=== PATIENT | female | born 1935 | race Caucasian/White ===

== ENCOUNTER 2017-08-28 08:50 | Emergency (ER) | payer MEDICARE, BC ==
--- NOTE | 2017-08-28 09:03 | Emergency Department Record ---
History of Present Illness - General Chief Complaint: Fall Injury Stated Complaint: FALL Time Seen by Provider: 08/28/17 08:53 Source: EMS Mode of Arrival: EMS - History of Present Illness Initial Comments: Patient at [facility] and found with a bruise on her forehead and no staff members saw her injury herself and she has dementia and in the memory side of [facility]. Patient ambulatory at the scene and denies headache and her personality the same as usual per staff at [facility]. EMS brought her in for evaluation and hard collar applied upon arrival and trauma alert called because patient on xarelto. Complaint: Fall -: Unknown When Fall Occurred: Unsure Fall Witnessed: No Place Fall Occurred: Home - [place] Coma Scale Eye Response: (4) Open spontaneously Motor Response: (6) Obeys commands Verbal Response: (5) Oriented [place] Total: 15 - Related Data Previous Rx's Medication Instructions Recorded Acetaminophen [Tylenol 325Mg] 325 mg PO Q6HR PRN #30 tablet 02/29/16 Aspirin Chewable 81 mg PO DAILY #30 tab.chew 02/29/16 Olanzapine [Zyprexa] 2.5 mg PO QHS #30 tablet 02/29/16 Diltiazem HCl [Cardizem] 30 mg PO TID #90 tablet 11/19/16 Levofloxacin [Levaquin] 500 mg PO DAILYFLUOR #10 tablet 11/19/16 Allergies Allergy/AdvReac Type Severity Reaction Status Date / Time Penicillins Allergy PT UNSURE Verified 07/18/16 19:23 OF REACTION Travel Screening - Travel/Exposure Within Last 30 Days Have you traveled within the last 30 days?: No - Travel/Exposure Within Last Year Have you traveled outside the [place] in the last year?: No - Additonal Travel Details Have you been exposed to anyone with a communicable illness?: No - Travel Symptoms Symptom Screening: None Review of Systems Reviewed: No additional complaints except as noted below Constitutional: Reports: As per HPI. Denies: Chills, Fever, Malaise, Night sweats, Weakness, Weight change Eyes: Reports: As per HPI. Denies: Eye discharge, Eye pain, Photophobia, Vision change ENT: Reports: As per HPI. Denies: Congestion, Dental pain, Ear pain, Epistaxis , Hearing loss, Throat pain Respiratory: Reports: As per HPI. Denies: Cough, Dyspnea, Hemoptysis, Stridor, Wheezes Cardiovascular: Reports: As per HPI. Denies: Arrhythmia, Chest pain, Dyspnea on exertion, Edema, Murmurs, Orthopnea, Palpitations, Paroxysmal nocturnal dyspnea, Rheumatic Fever, Syncope Endocrine: Reports: As per HPI. Denies: Fatigue, Heat or cold intolerance, Polydipsia, Polyuria Gastrointestinal: Reports: As per HPI. Denies: Abdominal pain, Constipation, Diarrhea, Hematemesis, Hematochezia, Melena, Nausea, Vomiting Genitourinary: Reports: As per HPI. Denies: Abnormal menses, Discharge, Dyspareunia, Dysuria, Frequency, Hematuria, Incontinence, Retention, Urgency Musculoskeletal: Reports: As per HPI, Other (bruise on the left forehead). Denies: Arthralgia, Back pain, Gout, Joint swelling, Myalgia, Neck pain Skin: Reports: As per HPI. Denies: Bruising, Change in color, Change in hair/ nails, Lesions, Pruritus, Rash Neurological: Reports: As per HPI. Denies: Abnormal gait, Confusion, Headache, Numbness, Paresthesias, Seizure, Tingling, Tremors, Vertigo, Weakness Psychiatric: Reports: As per HPI. Denies: Anxiety, Auditory hallucinations, Depression, Homicidal thoughts, Suicidal thoughts, Visual hallucinations Hematological/Lymphatic: Reports: As per HPI. Denies: Anemia, Blood Clots, Easy bleeding, Easy bruising, Swollen glands Past Medical History - SOCIAL HISTORY Smoking Status: Never smoker Alcohol Use: None Drug Use: None - RESPIRATORY Hx Respiratory Disorders: No - CARDIOVASCULAR Hx Cardio Disorders: Yes Hx Hypertension: Yes Hx Irregular Heartbeat: Yes (A-fib) - NEURO Hx Neuro Disorders: Yes Hx Dementia: Yes - GI Hx GI Disorders: No - Hx Genitourinary Disorders: No - ENDOCRINE Hx Endocrine Disorders: No - MUSCULOSKELETAL Hx Musculoskeletal Disorders: No - PSYCH Hx Psych Problems: No - HEMATOLOGY/ONCOLOGY Hx Hematology/Oncology Disorders: No Family Medical History Any Significant Family History?: No Family Hx Comment (NOT TO BE USED IN PLACE OF ITEMS BELOW): unknown-pt unable to answer d/t dementia Hx Cancer: Father Hx Dementia: Mother Hx Diabetes: Mother Physical Exam - General General Appearance: Alert, Cooperative, No acute distress, Other (patient oriented to name only) - Head Head exam: Normal inspection Head exam detail: Contusion (forehead) - Eye Eye exam: Normal appearance, PERRL Pupils: Normal accommodation - ENT ENT exam: Normal exam, Mucous membranes moist, Normal external ear exam, Normal orophraynx, TM's normal bilaterally Ear exam: Normal external inspection. negative: External canal tenderness Nasal Exam: Normal inspection. negative: Discharge, Sinus tenderness Mouth exam: Normal external inspection, Tongue normal Teeth exam: Normal inspection. negative: Dental caries Throat exam: Normal inspection. negative: Tonsillar erythema, Tonsillar exudate - Neck Neck exam: Normal inspection, Full ROM. negative: Tenderness - Respiratory Respiratory exam: Normal lung sounds bilaterally. negative: Respiratory distress - Cardiovascular Cardiovascular Exam: Regular rate, Normal rhythm, Normal heart sounds - GI/Abdominal GI/Abdominal exam: Soft, Normal bowel sounds. negative: Tenderness - Rectal Rectal exam: Deferred - exam: Deferred - Extremities Extremities exam: Normal inspection, Full ROM, Normal capillary refill. negative: Tenderness - Back Back exam: Reports: Normal inspection, Full ROM, Other (no pain on palpation of the thoracic or lumbar spine and she sat up without pain ). Denies: Muscle spasm, Rash noted, Tenderness - Neurological Neurological exam: Alert, Normal gait, Oriented X3, Reflexes normal - Psychiatric Psychiatric exam: Normal affect, Normal mood - Skin Skin exam: Dry, Intact, Normal color, Warm Course Vital Signs 08/28/17 08:54 Temperature 97.5 F L Pulse Rate 70 Respiratory 16 Rate Blood Pressure 133/65 Pulse Ox 98 - Reevaluation(s) Reevaluation #1: xray called back and she complained of thoracic and lumbar pain when placed on the CT table so made the chest xray 2 views and added two view LS spine 08/28/17 09:24 Reevaluation #2: neuro recheck negative 08/28/17 11:03 Reevaluation #3: daughter is at the bedside and willing to take her home 08/28/17 11:03 Medical Decision Making - Data Complexity MDM Data: Labs Ordered and/or Reviewed, X-Ray Ordered and/or Reviewed (CT head and csine negative, lumbar spine negative and chest xray neg), EKG Ordered and/ or Reviewed (LBBB , nsr, similiar to previous) - Lab Data Result diagrams: 08/28/17 08:55 08/28/17 08:55 Disposition Clinical Impression: Anticoagulated Fall Qualifiers: Encounter type: initial encounter Qualified Code(s): W19.XXXA - Unspecified fall, initial encounter Contusion of head Qualifiers: Encounter type: initial encounter Contusion of head detail: other part of head Qualified Code(s): S00.83XA - Contusion of other part of head, initial encounter Disposition: Home, Self-Care Condition: (1) Good Instructions: Fall Prevention for Older Adults (ED), Head Injury (ED) Additional Instructions: stop xarelto for 7 days and than restart xarelto Forms: Patient Portal Access Time of Disposition: 11:01 Quality - Quality Measures Quality Measures: N/A - Blood Pressure Screening Does Patient Have Any of the Following: No Blood Pressure Classification: Pre-Hypertensive BP Reading Systolic Measurement: 133 Diastolic Measurement: 65 Screening for High Blood Pressure: < Pre-Hypertensive BP, F/U Documented > [ G8950] Pre-Hypertensive Follow-up Interventions: Referral to alternative/primary care provider.
[2017-08-28 09:09] LABS: BASO % 1.5 % (0-6); GRAN % 56.4 % (47-80); HEMATOCRIT 39.2 % (35.0-47.0); HEMOGLOBIN 12.8 gm/dl (11.6-16.0); LYMPH % 32.3 % (16-45); MEAN CELL VOLUME 96.6 fl (81-97); MEAN CORPUSCULAR HEMOGLOBIN 31.5 pg (27-33); MEAN CORPUSCULAR HGB CONC 32.7 g/dl (32-36); MEAN PLATELET VOLUME 10.4 fl (7.4-10.4); MONO % 3.8 % (0-9); PLATELET COUNT 267 K/uL (130-400); RED BLOOD COUNT 4.06 M/uL (3.80-5.40); RED CELL DISTRIBUTION WIDTH 12.8 % (11.5-14.5); WHITE BLOOD COUNT W/O DIFF 6.9 K/uL (4.2-12.2)
[2017-08-28 09:22] LABS: INR 1.05; PARTIAL THROMBOPLASTIN TIME 24.6 SECONDS (24.5-39.1); PROTHROMBIN TIME (PATIENT) 11.4 SECONDS (9.5-12.1)
[2017-08-28 09:38] LABS: BLOOD UREA NITROGEN 12 mg/dL (8-23); CKMB 1.6 ng/mL (<3.77); CREATININE 0.9 mg/dL (0.5-0.9); EST GLOMERULAR FILTRATION RATE > 60 mL/min; GLUCOSE,RANDOM 134 mg/dL (74-109); TROPONIN I < 0.30 ng/mL (0.00-0.300)
--- NOTE | 2017-08-29 14:14 | CT SCAN REPORT ---
DATE: 08/28/2017. EXAM: CT OF THE BRAIN WITHOUT CONTRAST. HISTORY: Laceration. TECHNIQUE: CT of the brain without contrast. COMPARISON: 11/17/2015 CT of the brain. FINDINGS: The globes are intact. Mucosal thickening of the maxillary sinuses bilaterally. Air fluid level of the right sphenoid sinus. Mucosal thickening of the ethmoid air cells. No displaced or depressed skull fracture. No intra- or extra-axial hemorrhage. Small left frontal scalp hematoma. Age-appropriate atrophy. Small-vessel ischemic change. CT limited for the evaluation of acute infarct. No CT evidence for large or territorial acute infarct. No mass or midline shift. IMPRESSION: 1. SMALL LEFT FRONTAL SCALP HEMATOMA. 2. ATROPHY. SMALL-VESSEL ISCHEMIC CHANGE. 3. SINUSITIS, ABOVE. JOB NUMBER: [id number] MTDD
--- NOTE | 2017-08-29 14:28 | CT SCAN REPORT ---
DATE: 08/28/2017. EXAM: CT OF THE CERVICAL SPINE. HISTORY: Fall. TECHNIQUE: Axial CT images of the cervical spine with coronal and sagittal reconstructions. COMPARISON: Prior CT dated 11/17/2016. FINDINGS: Evaluation of spinal canal content is limited due to CT technique. However, vertebral body height is preserved. Minor anterolisthesis of C3 on C4 and C7 on T1, unchanged and felt to be degenerative or developmental in nature. Diffuse/multilevel degenerative change throughout the cervical spine, greatest at the C5-6 and C6-7 levels. Fibrotic changes in the lung apices. IMPRESSION: NEGATIVE FOR ACUTE CERVICAL SPINE ABNORMALITY. DIFFUSE DEGENERATIVE CHANGE ABOVE. JOB NUMBER: [id number] [facility]
--- NOTE | 2017-08-29 14:38 | RADIOLOGY REPORT ---
DATE: 08/28/2017. EXAM: TWO-VIEW, CHEST. HISTORY: Chest pain. TECHNIQUE: Frontal and lateral views of the chest. COMPARISON: None. FINDINGS: The heart size is normal. Atheromatous change of the thoracic aorta. Osteopenia. The lungs are clear. No pneumothorax. IMPRESSION: NEGATIVE CHEST. JOB NUMBER: [id number] MTDD
--- NOTE | 2017-08-29 14:42 | RADIOLOGY REPORT ---
DATE: 08/28/2017. EXAM: LUMBAR SPINE. HISTORY: Back pain. TECHNIQUE: Frontal and lateral views of the lumbar spine. COMPARISON: None. ENCOUNTER: Initial. FINDINGS: Osteopenia. Five [id number] lumbar type vertebral bodies. Diminutive 12 ribs. Vertebral body height and alignment are preserved. Endplate degenerative changes with facet arthropathy throughout the lumbar spine. Vascular calcifications are noted. IMPRESSION: OSTEOPENIA. MULTILEVEL DEGENERATIVE CHANGE. JOB NUMBER: [id number] MTDD
== END 2017-08-28 11:24 | disposition home or self-care (01) ==
LOC: ER 08:50
DX: S00.83XA Contusion of other part of head, initial encounter (principal); S00.03XA Contusion of scalp, initial encounter; M54.6 Pain in thoracic spine; R07.89 Other chest pain; I10 Essential (primary) hypertension; I48.91 Unspecified atrial fibrillation; F03.90 Unspecified dementia, unspecified severity, without behavioral disturbance, psychotic disturbance, mood disturbance, and anxiety; W19.XXXA Unspecified fall, initial encounter; Z79.01 Long term (current) use of anticoagulants; Y92.129 Unspecified place in nursing home as the place of occurrence of the external cause
CPT/HCPCS: 99284 ×2; 85025; 85730; 85610; 82553; 84484; 80048; 71020; 72100; 72125; 70450; 93005; 93010; G0480; 80320

== ENCOUNTER 2017-11-11 23:41 | Emergency (ER) | payer MEDICARE, BC ==
--- NOTE | 2017-11-12 00:07 | Emergency Department Record ---
History of Present Illness - General Chief Complaint: Fall Injury Stated Complaint: FALL Time Seen by Provider: 11/12/17 00:00 Source: EMS Mode of Arrival: EMS - History of Present Illness Initial Comments: Patient arrived by EMS because she fell at her care facility. She arrived with a cervical collar, alert, but not knowing what happened or where she lives. Uncertain of medications. Facility paged to find these answers. Patient denies headache, neck pain, "but this collar hurts," chest, abdomen, hips, back legs all non painful. Onset/Timin -: Minutes(s) Fall From: Standing When Fall Occurred: Just prior to arrival Place [facility] Loss of Consciousness: None Prolonged Down Time?: No Associated Symptoms: Denies - Related Data Home Medications Medication Instructions Recorded Confirmed Last Taken Mineral Oil/Petrolatum,White 3.5 gm OP QHS 11/12/17 11/12/17 Unknown [Lubrifresh Pm Eye Ointment] Previous Rx's Medication Instructions Recorded Acetaminophen [Tylenol 325Mg] 325 mg PO Q6HR PRN #30 tablet 02/29/16 Olanzapine [Zyprexa] 2.5 mg PO QHS #30 tablet 02/29/16 Diltiazem HCl [Cardizem] 30 mg PO TID #90 tablet 11/19/16 Sulfamethoxazole/Trimethoprim 1 each PO BID #19 tablet 11/12/17 [Bactrim Ds Tablet] Allergies Allergy/AdvReac Type Severity Reaction Status Date / Time Penicillins Allergy PT UNSURE Verified 07/18/16 19:23 OF REACTION Travel Screening - Travel/Exposure Within Last 30 Days Have you traveled within the last 30 days?: No - Travel Symptoms Symptom Screening: None Review of Systems Reviewed: No additional complaints except as noted below Constitutional: Reports: As per HPI. Denies: Chills, Fever, Malaise, Night sweats, Weakness, Weight change Eyes: Reports: As per HPI. Denies: Eye discharge, Eye pain, Photophobia, Vision change ENT: Reports: As per HPI. Denies: Congestion, Dental pain, Ear pain, Epistaxis , Hearing loss, Throat pain Respiratory: Reports: As per HPI. Denies: Cough, Dyspnea, Hemoptysis, Stridor, Wheezes Cardiovascular: Reports: As per HPI. Denies: Arrhythmia, Chest pain, Dyspnea on exertion, Edema, Murmurs, Orthopnea, Palpitations, Paroxysmal nocturnal dyspnea, Rheumatic Fever, Syncope Endocrine: Reports: As per HPI. Denies: Fatigue, Heat or cold intolerance, Polydipsia, Polyuria Gastrointestinal: Reports: As per HPI. Denies: Abdominal pain, Constipation, Diarrhea, Hematemesis, Hematochezia, Melena, Nausea, Vomiting Genitourinary: Reports: As per HPI. Denies: Abnormal menses, Discharge, Dyspareunia, Dysuria, Frequency, Hematuria, Incontinence, Retention, Urgency Musculoskeletal: Reports: As per HPI. Denies: Arthralgia, Back pain, Gout, Joint swelling, Myalgia, Neck pain Skin: Reports: As per HPI. Denies: Bruising, Change in color, Change in hair/ nails, Lesions, Pruritus, Rash Neurological: Reports: As per HPI. Denies: Abnormal gait, Confusion, Headache, Numbness, Paresthesias, Seizure, Tingling, Tremors, Vertigo, Weakness Psychiatric: Reports: As per HPI. Denies: Anxiety, Auditory hallucinations, Depression, Homicidal thoughts, Suicidal thoughts, Visual hallucinations Hematological/Lymphatic: Reports: As per HPI. Denies: Anemia, Blood Clots, Easy bleeding, Easy bruising, Swollen glands Past Medical History - SOCIAL HISTORY Smoking Status: Never smoker - RESPIRATORY Hx Respiratory Disorders: No - CARDIOVASCULAR Hx Cardio Disorders: Yes Hx Hypertension: Yes Hx Irregular Heartbeat: Yes (A-fib) - NEURO Hx Neuro Disorders: Yes Hx Dementia: Yes - GI Hx GI Disorders: No - Hx Genitourinary Disorders: No - ENDOCRINE Hx Endocrine Disorders: No - MUSCULOSKELETAL Hx Musculoskeletal Disorders: No - PSYCH Hx Psych Problems: No - HEMATOLOGY/ONCOLOGY Hx Hematology/Oncology Disorders: No Family Medical History Any Significant Family History?: Yes Family Hx Comment (NOT TO BE USED IN PLACE OF ITEMS BELOW): unknown-pt unable to answer d/t dementia Hx Cancer: Father Hx Dementia: Mother Hx Diabetes: Mother Physical Exam - General General Appearance: Alert, Cooperative, No acute distress, Other (C Collar in place, superficial abrasion to left forehead and left cheek at hairline) - Head Head exam: Normal inspection - Eye Eye exam: Normal appearance, PERRL Pupils: Normal accommodation - ENT ENT exam: Normal exam, Mucous membranes moist, Normal external ear exam, Normal orophraynx, TM's normal bilaterally Ear exam: Normal external inspection. negative: External canal tenderness Nasal Exam: Normal inspection. negative: Discharge, Sinus tenderness Mouth exam: Normal external inspection, Tongue normal Teeth exam: Normal inspection. negative: Dental caries Throat exam: Normal inspection. negative: Tonsillar erythema, Tonsillar exudate - Neck Neck exam: Normal inspection, Other (c collar in place). negative: Tenderness - Respiratory Respiratory exam: Normal lung sounds bilaterally. negative: Accessory muscle use, Chest wall tenderness, Respiratory distress - Cardiovascular Cardiovascular Exam: Regular rate, Normal rhythm, Normal heart sounds - GI/Abdominal GI/Abdominal exam: Soft, Normal bowel sounds. negative: Tenderness - Rectal Rectal exam: Deferred - exam: Deferred - Extremities Extremities exam: Normal inspection, Full ROM, Normal capillary refill, Other ( hips nees and ankles moved through ROM without difficulty or evidence of pain.) . negative: Tenderness - Back Back exam: Reports: Normal inspection, Full ROM. Denies: Muscle spasm, Rash noted, Tenderness - Neurological Neurological exam: Alert, CN II-XII intact, Normal gait, Reflexes normal. negative: Motor sensory deficit - Psychiatric Psychiatric exam: Normal affect, Normal mood - Skin Skin exam: Dry, Intact, Normal color, Warm Course Vital Signs 11/11/17 23:45 Temperature 97.3 F L Pulse Rate 60 Respiratory 16 Rate Blood Pressure 145/70 Pulse Ox 98 Medical Decision Making - Management Options MDM Management: No Additional Work-up Planned - Data Complexity MDM Data: Labs Ordered and/or Reviewed (UA: 2+bacteria, 10-15 WBC's,+LE;+N, ), X -Ray Ordered and/or Reviewed (Noncontrast Head CT: No evidence of ICH, mass or hydrocephalus. CT C spine: No evidence of fracture. Multilevel DDD. Chronic changes. Focal cortical defect left occipital condyl which do not repressent a fracture. Per Vrad.), EKG Ordered and/or Reviewed (LBBB unchanged from 08-28-17.) - Lab Data Result diagrams: 11/12/17 00:51 11/12/17 00:51 - EKG Data -: EKG Interpreted by Me EKG: No Acute Changes, LBBB (unchanged from 08-28-17) Disposition Disposition: Discharge Clinical Impression: Head contusion Qualifiers: Encounter type: initial encounter Contusion of head detail: unspecified part of head Qualified Code(s): S00.93XA - Contusion of unspecified part of head, initial encounter Dementia Qualifiers: Dementia type: unspecified type Dementia behavioral disturbance: without behavioral disturbance Qualified Code(s): F03.90 - Unspecified dementia without behavioral disturbance UTI (urinary tract infection) Qualifiers: Urinary tract infection type: acute cystitis Hematuria presence: without hematuria Qualified Code(s): N30.00 - Acute cystitis without hematuria Disposition: Home, Self-Care Condition: (1) Good Instructions: Fall Prevention for Older Adults (ED), Urinary Tract Infection in Women (ED) Additional Instructions: Bactrim DS one twice daily for 10 days until gone. Return to Facility of residence. Continue present meds. Prescriptions: Sulfamethoxazole/Trimethoprim [Bactrim Ds Tablet] 1 each PO BID #19 tablet Quality - Quality Measures Quality Measures: N/A - Blood Pressure Screening Does Patient Have Any of the Following: No Blood Pressure Classification: Hypertensive Reading Systolic Measurement: 145 Diastolic Measurement: 70 Screening for High Blood Pressure: < Pre-Hypertensive BP, F/U Documented > [ G8950] Pre-Hypertensive Follow-up Interventions: Follow-up with rescreen every year.
[2017-11-12 00:54] LABS: GRAN % 79.4 % (47-80); HEMATOCRIT 36.4 % (35.0-47.0); HEMOGLOBIN 12.1 gm/dl (11.6-16.0); LYMPH % 14.2 % (16-45); MEAN CELL VOLUME 95.3 fl (81-97); MEAN CORPUSCULAR HEMOGLOBIN 31.7 pg (27-33); MEAN CORPUSCULAR HGB CONC 33.2 g/dl (32-36); MEAN PLATELET VOLUME 9.9 fl (7.4-10.4); PLATELET COUNT 253 K/uL (130-400); RED BLOOD COUNT 3.82 M/uL (3.80-5.40); RED CELL DISTRIBUTION WIDTH 12.7 % (11.5-14.5); WHITE BLOOD COUNT W/O DIFF 12.1 K/uL (4.2-12.2)
[2017-11-12 00:55] LABS: BASO % 0.6 % (0-6); EOS % 1.5 % (0-6); MONO % 4.3 % (0-9)
[2017-11-12 01:07] LABS: BLOOD UREA NITROGEN 13 mg/dL (8-23); CREATININE 0.9 mg/dL (0.5-0.9); EST GLOMERULAR FILTRATION RATE > 60 mL/min
[2017-11-12 01:08] LABS: TOTAL PROTEIN 7.1 g/dL (6.6-8.7)
[2017-11-12 01:10] LABS: GLUCOSE,RANDOM 107 mg/dL (74-109); INR 1.14; PARTIAL THROMBOPLASTIN TIME 27.1 SECONDS (24.5-39.1); PROTHROMBIN TIME (PATIENT) 12.3 SECONDS (9.5-12.1)
[2017-11-12 01:11] LABS: LACTIC ACID 0.8 mmol/L (0.5-2.2)
[2017-11-12 01:12] LABS: ALT/SGPT 10 U/L (<33); AST/SGOT 14 U/L (10.0-35.0)
[2017-11-12 01:13] LABS: ALBUMIN 4.1 g/dL (4.0-5.0); ALKALINE PHOSPHATASE 66 U/L (35-104)
[2017-11-12 01:14] LABS: BILIRUBIN,DIRECT < 0.2 mg/dL (0-0.3)
[2017-11-12 03:03] LABS: URINE APPEARANCE SL CLOUDY; URINE BILIRUBIN NEGATIVE (NEGATIVE); URINE BLOOD TRACE-I (NEGATIVE); URINE COLOR YELLOW; URINE GLUCOSE (UA) NEGATIVE (NEGATIVE); URINE KETONE NEGATIVE (NEGATIVE); URINE LEUKOCYTE ESTERASE LARGE (NEGATIVE); URINE NITRITE POSITIVE (NEGATIVE); URINE PROTEIN NEGATIVE (NEGATIVE); URINE UROBILINOGEN 0.2 E.U./dL (0.20 - 1.00)
[2017-11-12 03:06] LABS: AMPHETAMINE SCREEN URINE NOT DETECTED; BARBITURATE SCREEN URINE NOT DETECTED; BENZODIAZEPINE SCREEN URINE NOT DETECTED; COCAINE SCREEN URINE NOT DETECTED; METHADONE SCREEN URINE NOT DETECTED; METHAMPHETAMINE SCREEN NOT DETECTED; OPIATE SCREEN URINE NOT DETECTED; OXYCODONE SCREEN URINE NOT DETECTED; PHENCYCLIDINE SCREEN URINE NOT DETECTED; PROPOXYPHENE SCREEN URINE NOT DETECTED; THC SCREEN URINE NOT DETECTED; TRICYCLIC ANTIDEPRESSANT SCRN NOT DETECTED
[2017-11-12 03:07] LABS: URINE BACTERIA 2+; URINE RBC 0 - 2 (NONE SEEN)
[2017-11-12] MEDS ORDERED: TMP/SMZ 160MG/800MG TAB PO ONE (03:16)
--- NOTE | 2017-11-12 09:12 | RADIOLOGY REPORT ---
EXAM: PELVIS AND BILATERAL HIPS HISTORY: FALL. TECHNIQUE: AP view of the pelvis with two views of each hip were obtained. Comparison: None. FINDINGS: Osteopenia. Degenerative change of the hips bilaterally. No radiographic evidence for an acute fracture or dislocation. The soft tissues are unremarkable. IMPRESSION: OSTEOPENIA WITH DEGENERATIVE CHANGE. JOB NUMBER: [id number] MTDD
--- NOTE | 2017-11-12 09:18 | CT SCAN REPORT ---
EXAM: CT OF THE CERVICAL SPINE HISTORY: FALL. TECHNIQUE: Axial CT images of the cervical spine were obtained with coronal and sagittal reconstructions. Comparison: Prior CT from 08/28/17. FINDINGS: Evaluation of spinal canal contents is limited due to CT technique, however, vertebral body height and alignment is preserved. Negative for fracture/compression deformity or subluxation. Degenerative changes throughout the cervical spine with diffuse disk space narrowing, osteophytic spurring, facet arthropathy, and uncovertebral joint hypertrophy. Limited evaluation of extraspinal anatomic structures shows atheromatous change. IMPRESSION: NEGATIVE FOR ACUTE CERVICAL SPINE ABNORMALITY. DIFFUSE DEGENERATIVE CHANGE. J[facility]BER: [id number] [facility]
--- NOTE | 2017-11-12 09:35 | RADIOLOGY REPORT ---
EXAM: CHEST, TWO VIEWS HISTORY: FALL. TECHNIQUE: Frontal and lateral views of the chest were obtained. Comparison: 08/28/17 chest. FINDINGS: The heart size is stable. Atheromatous change of the thoracic aorta. Osteopenia. The lungs are clear. No pneumothorax. IMPRESSION: NO ACUTE CARDIOPULMONARY PROCESS. JOB NUMBER: [id number] MTDD
--- NOTE | 2017-11-12 09:37 | CT SCAN REPORT ---
EXAM: CT OF THE BRAIN HISTORY: HYPERTENSION. TECHNIQUE: CT of the brain without contrast was obtained. Comparison: Prior CT brain from 08/28/17. FINDINGS: The globes are intact. Bubbly air fluid level of the right sphenoid sinus. No displaced or depressed skull fracture. No intra or extraaxial hemorrhage. CT is limited for the evaluation of acute infarct. No CT evidence for large or territorial acute infarct. No mass or midline shift. Diffuse atrophy with small vessel ischemic change. IMPRESSION: RIGHT SPHENOID SINUSITIS. ATROPHY. SMALL VESSEL ISCHEMIC CHANGE. JOB [facility]BER: [id number] [facility]
== END 2017-11-12 03:56 | disposition home or self-care (01) ==
LOC: ER 23:41
DX: S00.93XA Contusion of unspecified part of head, initial encounter (principal); S00.81XA Abrasion of other part of head, initial encounter; N30.00 Acute cystitis without hematuria; M25.551 Pain in right hip; F03.90 Unspecified dementia, unspecified severity, without behavioral disturbance, psychotic disturbance, mood disturbance, and anxiety; I10 Essential (primary) hypertension; I48.91 Unspecified atrial fibrillation; W19.XXXA Unspecified fall, initial encounter; Y92.129 Unspecified place in nursing home as the place of occurrence of the external cause
CPT/HCPCS: 99283; 99284; 83605; 85025; 85730; 85610; 80076; 80048; 81001; 80305; 85379; 71020; 73521; 72125; 70450; 93005; 93010; J3490

== ENCOUNTER 2017-11-17 02:39 | Emergency (ER) | payer MEDICARE, BC ==
--- NOTE | 2017-11-17 02:48 | Emergency Department Record ---
History of Present Illness - General Chief Complaint: Fall Injury Stated Complaint: FALL Time Seen by Provider: 11/17/17 02:42 Source: Patient, EMS Mode of Arrival: EMS Limitations: No limitations (At her baseline) - History of Present Illness Initial Comments: 82 yo female presents after a fall. The patient resides at [facility]. By report she had been alone for less than 3 minutes. She was found on the floor. Per the staff and EMS she does not have any obvious injuries. The patient at baseline has dementia and is an unreliable historian. Per EMS, they do not see any injuries and did not elicit any pain on their evaluation, transport, or on arrival. The patient denies any pain. The patient has a history of numerous prior falls. She is on Xarelto. EMS did not see any obvious signs of head injury. MD Complaint: Fall -: Minutes(s) Fall From: Out of bed When Fall Occurred: Recurrent falls Fall Witnessed: No (They had been out of the om for about 3 minutes) Place Fall Occurred: [facility] Loss of Consciousness: None Prolonged Down Time?: No Symptoms Prior to Fall: None Location: Other (No obvious) Associated Symptoms: Denies - Jeremiah Coma Scale Eye Response: (4) Open spontaneously Motor Response: (6) Obeys commands Verbal Response: (5) Oriented [place] Total: 15 - Related Data Previous Rx's Medication Instructions Recorded Acetaminophen [Tylenol 325Mg] 325 mg PO Q6HR PRN #30 tablet 02/29/16 Olanzapine [Zyprexa] 2.5 mg PO QHS #30 tablet 02/29/16 Diltiazem HCl [Cardizem] 30 mg PO TID #90 tablet 11/19/16 Sulfamethoxazole/Trimethoprim 1 each PO BID #19 tablet 11/12/17 [Bactrim Ds Tablet] Allergies Allergy/AdvReac Type Severity Reaction Status Date / Time Penicillins Allergy PT UNSURE Verified 11/17/17 02:42 OF REACTION Review of Systems Constitutional: Denies: Chills, Fever, Malaise Eyes: Denies: Eye discharge, Eye pain, Photophobia ENT: Denies: Congestion, Throat pain Respiratory: Denies: Cough, Dyspnea Cardiovascular: Denies: Chest pain, Syncope Endocrine: Denies: Fatigue Gastrointestinal: Denies: Abdominal pain, Diarrhea, Nausea, Vomiting Genitourinary: Denies: Dysuria Musculoskeletal: Denies: Arthralgia, Back pain, Joint swelling, Myalgia, Neck pain Skin: Denies: Bruising, Change in color, Rash Neurological: Reports: Confusion (baseline). Denies: Headache, Weakness Psychiatric: Denies: Anxiety Hematological/Lymphatic: Denies: Easy bleeding, Easy bruising Past Medical History - SOCIAL HISTORY Smoking Status: Never smoker - RESPIRATORY Hx Respiratory Disorders: No - CARDIOVASCULAR Hx Cardio Disorders: Yes Hx Hypertension: Yes Hx Irregular Heartbeat: Yes (A-fib) - NEURO Hx Neuro Disorders: Yes Hx Dementia: Yes - GI Hx GI Disorders: No - Hx Genitourinary Disorders: No - ENDOCRINE Hx Endocrine Disorders: No - MUSCULOSKELETAL Hx Musculoskeletal Disorders: No - PSYCH Hx Psych Problems: No - HEMATOLOGY/ONCOLOGY Hx Hematology/Oncology Disorders: No Family Medical History Family Hx Comment (NOT TO BE USED IN PLACE OF ITEMS BELOW): unknown-pt unable to answer d/t dementia Hx Cancer: Father Hx Dementia: Mother Hx Diabetes: Mother Physical Exam - General General Appearance: Alert, Cooperative, No acute distress Limitations: Other (Baseline dementia) - Head Head exam: Atraumatic, Normocephalic, Normal inspection Head exam detail: Other (Old healing abrasion left frontal). negative: Abrasion , Contusion, Hematoma - Eye Eye exam: Normal appearance. negative: Conjunctival injection, Periorbital swelling - ENT ENT exam: Normal exam, Mucous membranes moist Ear exam: Normal external inspection Nasal Exam: Normal inspection Mouth exam: Normal external inspection - Neck Neck exam: Normal inspection - Respiratory Respiratory exam: Normal lung sounds bilaterally. negative: Accessory muscle use, Chest wall tenderness - Cardiovascular Cardiovascular Exam: Regular rate, Normal rhythm, Normal heart sounds Peripheral Pulses: 2+: Radial (R), Radial (L) - GI/Abdominal GI/Abdominal exam: Soft. negative: Tenderness - Rectal Rectal exam: Deferred - exam: Deferred - Extremities Extremities exam: Normal inspection, Full ROM, Normal capillary refill. negative: Calf tenderness, Joint swelling, Pedal edema, Tenderness - Back Back exam: Reports: Normal inspection, Full ROM. Denies: CVA tenderness (R), CVA tenderness (L), Muscle spasm, Paraspinal tenderness, Rash noted, Tenderness , Vertebral tenderness - Neurological Neurological exam: Alert. negative: Altered (at baseline), Motor sensory deficit - Psychiatric Psychiatric exam: Normal affect, Normal mood - Skin Skin exam: Abrasion (old) Course - Reevaluation(s) Reevaluation #1: 11/17/17 02:50 The patient was seen and examined on arrival I was not able to elicit any pain or tenderness I do not see any outward signs of head injury She will be scanned given she is on Xarelto 11/17/17 03:[address] scan of the Head was negative for acute process. The C spine was negative for acute process. The patient was re-examined. She denies any pain at this time. No tender or pain on examination. DC home. Disposition Disposition: Discharge Clinical Impression: Fall Qualifiers: Encounter type: initial encounter Qualified Code(s): W19.XXXA - Unspecified fall, initial encounter Disposition: Home, Self-Care Condition: (1) Good Instructions: Fall Prevention for Older Adults (ED) Additional Instructions: Return if you have any symptoms, concerns or pain Follow up with the [facility] physician to review this ER visit. Forms: Patient Portal Access Time of Disposition: 03:43 Quality - Quality Measures Quality Measures: N/A - Blood Pressure Screening Does Patient Have Any of the Following: No, Active Dx of HTN Blood Pressure Classification: Normal BP Reading Systolic Measurement: 113 Diastolic Measurement: 58 Screening for High Blood Pressure: < Normal BP, F/U Not Required > [G8783]
--- NOTE | 2017-11-17 11:36 | CT SCAN REPORT ---
EXAM: CT SCAN HEAD WO CONTRAST HISTORY: FALL TONIGHT. DEMENTIA. TECHNIQUE: Routine noncontrast CT examination of the head. COMPARISON: CT head without contrast dated 11/12/17. FINDINGS: Moderate dilatation of the subarachnoid spaces with borderline ventriculomegaly redemonstrated. Mild to moderate periventricular and subcortical white matter lucencies are again noted in each cerebral hemisphere. This pattern is unchanged and consistent with chronic small vessel ischemia. No new large area of abnormally increased or decreased attenuation is noted throughout the brain substance. No abnormal extraaxial fluid collection is seen , nor is there skull fracture identified. An air-fluid level is again noted within the right sphenoid sinus consistent with sinusitis. Minor mucosal thickening is also suggested in several bilateral paranasal sinuses. Postsurgical changes noted within the ethmoid regions bilaterally. The orbits as visualized are unremarkable. IMPRESSION: 1. NO CT EVIDENCE OF ACUTE MAJOR VESSEL INFARCT, INTRACRANIAL HEMORRHAGE, NOR SKULL FRACTURE WITHOUT SIGNIFICANT CHANGE SINCE 11/12/2017. 2. GENERALIZED ATROPHY REDEMONSTRATED. WHITE MATTER LUCENCY IS AGAIN NOTED IN EACH CEREBRAL HEMISPHERE CONSISTENT WITH CHRONIC SMALL VESSEL ISCHEMIA. 3. RIGHT SPHENOID SINUSITIS AGAIN SUGGESTED. MILD MUCOSAL THICKENING IN SEVERAL ADDITIONAL PARANASAL SINUSES. JOB NUMBER: [id number] MTDD
--- NOTE | 2017-11-17 11:44 | CT SCAN REPORT ---
EXAM: CT SCAN CERVICAL SPINE WO CONTRAST HISTORY: FALL. NECK PAIN. DEMENTIA. TECHNIQUE: Thin-collimation helical CT examination of the cervical spine is performed in the axial plane without intravenous contrast. Coronal and sagittal reformatted images are generated and reviewed. COMPARISON: CT cervical spine without contrast dated 11/12/2017. FINDINGS: There is diffuse osteopenia redemonstrated. There is straightening of the normal cervical lordosis. There is mild anterolisthesis of C3 on C4, stable. This measures 3 mm. Equivocal anterolisthesis of C4 on C5 as well as C7 on T1 is stable. The vertebral bodies are otherwise normal in alignment. Minor chronic anterior wedge deformity of T1 is stable. The vertebral bodies are otherwise normal in height. No acute fracture, destructive bone lesion, or prevertebral soft tissue swelling. Multilevel degenerative disc, uncovertebral joint, and facet degenerative changes redemonstrated. No new gross osseous cervical spinal stenosis visualized. Multilevel bilateral neural foraminal narrowing redemonstrated secondary to uncovertebral joint and facet joint spurring, most pronounced on the right at the upper levels. There is again suggestion of fusion of the right C3-C4 facet joint. Changes of right sphenoid sinusitis again noted. Mild mucosal thickening of the visualized maxillary sinuses. Mild atherosclerotic calcification of the carotid bifurcations again demonstrated. A small hypodense nodule is present within the right thyroid lobe measuring approximately 7 mm. Biapical lung scarring redemonstrated. IMPRESSION: 1. NO CT EVIDENCE OF ACUTE FRACTURE, SUSPICIOUS SUBLUXATION, OR PREVERTEBRAL SOFT TISSUE SWELLING WITHOUT SIGNIFICANT CHANGE IN APPEARANCE OF THE CERVICAL SPINE SINCE 11/12/2017. 2. MULTILEVEL DEGENERATIVE CHANGES REDEMONSTRATED. 3. BIAPICAL LUNG SCARRING. 4. A 7 MM HYPODENSE NODULE AGAIN SUGGESTED WITHIN THE RIGHT THYROID LOBE. THIS IS NONSPECIFIC. IF CLINICALLY WARRANTED, THIS COULD BE FURTHER EVALUATED WITH THYROID ULTRASOUND. JOB NUMBER: [id number] [facility]
== END 2017-11-17 04:03 | disposition home or self-care (01) ==
LOC: ER 02:39
DX: S09.90XA Unspecified injury of head, initial encounter (principal); M54.2 Cervicalgia; I48.91 Unspecified atrial fibrillation; I10 Essential (primary) hypertension; Z79.01 Long term (current) use of anticoagulants; Z91.81 History of falling; W06.XXXA Fall from bed, initial encounter; Y92.122 Bedroom in nursing home as the place of occurrence of the external cause; F03.90 Unspecified dementia, unspecified severity, without behavioral disturbance, psychotic disturbance, mood disturbance, and anxiety
CPT/HCPCS: 70450; 72125; 99283; 99284

== ENCOUNTER 2017-11-18 19:49 | Emergency (ER) | payer MEDICARE, BC ==
--- NOTE | 2017-11-18 19:58 | Emergency Department Record ---
History of Present Illness - General Chief Complaint: Fall Injury Stated Complaint: FALL Time Seen by Provider: 11/18/17 19:52 Source: Patient, EMS Mode of Arrival: EMS Limitations: Altered mental status - History of Present Illness Initial Comments: 82 yo presents from [facility] after another fall. She has a long history of instability with multiple fall at [facility]. The fall was unwitnessed. She states she hit her head and low back. No visible signs of injury were seen by EMS. No other complaints. She is on Xarelto. 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 MD Complaint: Fall -: Hour(s) Fall From: Standing - Related Data Previous Rx's Medication Instructions Recorded Acetaminophen [Tylenol 325Mg] 325 mg PO Q6HR PRN #30 tablet 02/29/16 Olanzapine [Zyprexa] 2.5 mg PO QHS #30 tablet 02/29/16 Diltiazem HCl [Cardizem] 30 mg PO TID #90 tablet 11/19/16 Sulfamethoxazole/Trimethoprim 1 each PO BID #19 tablet 11/12/17 [Bactrim Ds Tablet] Allergies Allergy/AdvReac Type Severity Reaction Status Date / Time Penicillins Allergy PT UNSURE Verified 11/17/17 02:42 OF REACTION Review of Systems Constitutional: Denies: Chills, Fever, Malaise, Weakness Eyes: Denies: Eye discharge ENT: Denies: Congestion, Throat pain Respiratory: Denies: Cough, Dyspnea, Hemoptysis Cardiovascular: Denies: Chest pain, Palpitations, Syncope Endocrine: Denies: Fatigue Gastrointestinal: Denies: Abdominal pain, Diarrhea, Nausea, Vomiting Genitourinary: Denies: Dysuria, Urgency Musculoskeletal: Reports: As per HPI, Back pain. Denies: Arthralgia, Neck pain Skin: Denies: Bruising, Change in color, Rash Neurological: Denies: Headache, Numbness, Weakness Psychiatric: Denies: Anxiety Hematological/Lymphatic: Denies: Blood Clots, Easy bleeding, Easy bruising, Swollen glands Past Medical History - SOCIAL HISTORY Smoking Status: Never smoker - RESPIRATORY Hx Respiratory Disorders: No - CARDIOVASCULAR Hx Cardio Disorders: Yes Hx Hypertension: Yes Hx Irregular Heartbeat: Yes (A-fib) - NEURO Hx Neuro Disorders: Yes Hx Dementia: Yes - GI Hx GI Disorders: No - Hx Genitourinary Disorders: No - ENDOCRINE Hx Endocrine Disorders: No - MUSCULOSKELETAL Hx Musculoskeletal Disorders: No - PSYCH Hx Psych Problems: No - HEMATOLOGY/ONCOLOGY Hx Hematology/Oncology Disorders: No Family Medical History Family Hx Comment (NOT TO BE USED IN PLACE OF ITEMS BELOW): unknown-pt unable to answer d/t dementia Hx Cancer: Father Hx Dementia: Mother Hx Diabetes: Mother Physical Exam - General General Appearance: Alert, Oriented x3, Cooperative, No acute distress Limitations: No limitations - Head Head exam: Atraumatic, Normocephalic, Normal inspection Head exam detail: negative: Abrasion, Contusion, Hematoma, Laceration - Eye Eye exam: Normal appearance. negative: Conjunctival injection, Scleral icterus - ENT ENT exam: Normal exam, Mucous membranes moist Ear exam: Normal external inspection Nasal Exam: Normal inspection Mouth exam: Normal external inspection Teeth exam: Normal inspection Throat exam: Normal inspection - Neck Neck exam: Normal inspection, Full ROM. negative: Lymphadenopathy, Tenderness, Thyromegaly - Respiratory Respiratory exam: Normal lung sounds bilaterally. negative: Respiratory distress, Rhonchi, Stridor, Wheezes - Cardiovascular Cardiovascular Exam: Regular rate, Normal rhythm, Normal heart sounds - GI/Abdominal GI/Abdominal exam: Soft. negative: Tenderness - Rectal Rectal exam: Deferred - exam: Deferred - Extremities Extremities exam: Normal inspection, Full ROM. negative: Joint swelling, Normal capillary refill, Tenderness - Back Back exam: Reports: Normal inspection, Full ROM, Tenderness, Vertebral tenderness (lumbar). Denies: CVA tenderness (R), CVA tenderness (L), Muscle spasm - Neurological Neurological exam: Alert, CN II-XII intact, Other (No changes in mentation from prior visit, she is awake, answers questions). negative: Altered - Psychiatric Psychiatric exam: Normal affect, Normal mood - Skin Skin exam: Dry, Intact, Normal color, Warm Course - Reevaluation(s) Reevaluation #1: The patient was seen and examined. No signs of head injury on inspection or examination Given her history of being on blood thinners again she will be scanned as it is reported she hit her head She also states her low back is sore. XR ordered. 11/18/17 19:55 11/18/17 19:[address] from last visit reviewed. 11/18/17 21:33 The Lumbar XR and the HCT were reviewed. No acute injury or acute changes. The daughter is in the ER and will take the patient back to [facility] Disposition Disposition: Discharge Clinical Impression: Frequent falls Lumbar contusion Qualifiers: Encounter type: initial encounter Qualified Code(s): S30.0XXA - Contusion of lower back and pelvis, initial encounter Disposition: Home, Self-Care Condition: (1) Good Instructions: Fall Prevention for Older Adults (ED) Additional Instructions: Monitor the patient at all times Return if any concerns Call Dr Howard for close follow up Forms: Patient Portal Access Time of Disposition: 21:35 Quality - Quality Measures Quality Measures: N/A - Blood Pressure Screening Does Patient Have Any of the Following: No Blood Pressure Classification: Pre-Hypertensive BP Reading Systolic Measurement: 124 Diastolic Measurement: 65 Screening for High Blood Pressure: < Pre-Hypertensive BP, F/U Documented > [ G8950] Pre-Hypertensive Follow-up Interventions: Referral to alternative/primary care provider.
[2017-11-18] MEDS ORDERED: ACETAMINOPHEN 325 MG TAB PO ONE (21:41)
--- NOTE | 2017-11-19 08:34 | RADIOLOGY REPORT ---
EXAM: LUMBAR SPINE W/OBLIQUES HISTORY: UNWITNESSED FALL AGAIN. TECHNIQUE: Five views of the lumbar spine. COMPARISON: AP and lateral lumbar spine series 08/28/17. ENCOUNTER: Initial. FINDINGS: Diffuse osteopenia again seen consistent with osteoporosis. Degenerative change in the facets of the lumbar spine. Degenerative disc disease at multiple levels in the lumbar spine, most marked at the lumbosacral interspace. Associated hypertrophic spurring. Prominent spurring in the visualized lower thoracic spine as well. No definite fracture of the lumbar spine identified. IMPRESSION: OSTEOPOROSIS. HYPERTROPHIC AND DEGENERATIVE CHANGES. NO DEFINITE FRACTURE OF THE LUMBAR SPINE IDENTIFIED. JOB NUMBER: [id number] MTDD
--- NOTE | 2017-11-19 08:41 | CT SCAN REPORT ---
EXAM: CT SCAN HEAD WO CONTRAST HISTORY: UNWITNESSED FALL AGAIN. PATIENT HAS DEMENTIA. TECHNIQUE: Axial CT scan of the head performed without IV contrast. COMPARISON: Head CT performed yesterday on 11/17/17. ENCOUNTER: Initial. FINDINGS: No definite acute intracranial hemorrhage identified. No focal mass effect or midline shift apparent. Generalized atrophy with chronic-appearing deep white matter changes as before, nonspecific but likely representing some chronic small vessel deep white matter ischemic disease. No definite acute infarct or intracranial mass lesion seen. Persistent opacification in the sphenoid sinus, similar to that seen yesterday. No depressed calvarial fracture evident. IMPRESSION: 1. GENERALIZED ATROPHY WITH CHRONIC-APPEARING DEEP WHITE CHANGES BEFORE. 2. NO DEFINITE ACUTE INTRACRANIAL HEMORRHAGE OR FOCAL MASS EFFECT EVIDENT. 3. PERSISTENT OPACIFICATION IN THE SPHENOID SINUS, SIMILAR TO THAT SEEN YESTERDAY WITH MINOR OPACIFICATION INFERIORLY IN THE LEFT MAXILLARY SINUS BEFORE WELL. JOB NUMBER: [id number] MTDD
== END 2017-11-18 22:14 | disposition home or self-care (01) ==
LOC: ER 19:49
DX: S30.0XXA Contusion of lower back and pelvis, initial encounter (principal); S09.90XA Unspecified injury of head, initial encounter; I48.91 Unspecified atrial fibrillation; I10 Essential (primary) hypertension; F03.90 Unspecified dementia, unspecified severity, without behavioral disturbance, psychotic disturbance, mood disturbance, and anxiety; Z91.81 History of falling; Z79.01 Long term (current) use of anticoagulants; W17.89XA Other fall from one level to another, initial encounter; Y92.129 Unspecified place in nursing home as the place of occurrence of the external cause
CPT/HCPCS: 70450; 72110; 99283; 99284